=== PATIENT | male | born 1960 | race African-American/Black ===

== ENCOUNTER 2017-08-23 17:28 | Inpatient (IN) | payer SELFPAY ==
[~2017-08-23] VITALS: Ht 175.3 cm; Wt 68.9 kg
[2017-08-23] MEDS ORDERED: NITROGLYCERIN 0.4MG TABLET SL SL ONE (18:15)
[2017-08-23] MEDS ORDERED: MORPHINE SULFATE 4 MG/ML CPJ (NOT FOR IM USE) IV ONE (18:15)
[2017-08-23] MEDS ORDERED: ASPIRIN 325MG EC TABLET PO ONE (18:15)
[2017-08-23 18:33] LABS: BASOPHILS % 1.1 % (0.0-2.0); EOSINOPHILS % 3.3 % (0.0-5.0); HEMATOCRIT. 47.8 % (42.0-52.0); HEMOGLOBIN. 15.8 g/dL (14.0-18.0); LYMPHOCYTES % 32.9 % (20.0-50.0); MEAN CORPUSCULAR HEMOGLOBIN 26.6 pg (28.0-32.0); MEAN CORPUSCULAR VOLUME 80.6 fL (80.0-94.0); MEAN PLATELET VOLUME 8.1 fl (7.4-10.4); MONOCYTES % 11.1 % (2.0-8.0); NEUTROPHILS % 51.6 % (40.0-76.0); PLATELET 273 x1000/uL (130-400); RED BLOOD CELL COUNT 5.93 mill/uL (4.7-6.1); RED CELL DISTRIBUTION WIDTH 13.7 % (11.6-14.6)
[2017-08-23 18:37] LABS: CHLORIDE 101 mEq/L (98-107)
[2017-08-23 18:38] LABS: INR 1.1; PARTIAL THROMBOPLASTIN TIME 28.5 sec (23.4-31.0)
[2017-08-23] MEDS ORDERED: LORAZEPAM 2MG/ML CPJ IV ONE (19:45)
[2017-08-24 10:21] VITALS: BP 142/90
[2017-08-24] MEDS ORDERED: LORAZEPAM 2MG/ML CPJ IV PRN (10:30)
[2017-08-24] MEDS ORDERED: CLONIDINE 0.1MG TABLET PO PRN (10:45)
[2017-08-24] MEDS ORDERED: MAGNESIUM/ALUMINUM HYDROXIDE/SIMETHICONE 30ML UDC PO PRN (10:45)
[2017-08-24] MEDS ORDERED: ACETAMINOPHEN 325MG TABLET PO PRN (10:45)
[2017-08-24] MEDS ORDERED: IPRATROPIUM/ALBUTEROL 0.5-3(2.5)MG/3ML NEB INH PRN (10:45)
[2017-08-24] MEDS ORDERED: ONDANSETRON HCL 4MG/2ML VIAL IV PRN (10:45)
[2017-08-24] MEDS ORDERED: HYDROCODONE/ACETAMINOPHEN 5/325MG TABLET PO PRN (10:45)
[2017-08-24] MEDS: MORPHINE SULFATE 4 MG/ML CPJ (NOT FOR IM USE) IV PRN ×2 (10:52→20:55)
[2017-08-24] MEDS: AMLODIPINE 10MG TABLET PO SCH (12:01)
[2017-08-24] MEDS: ENOXAPARIN 40MG/0.4ML SYR SUBCUT SCH (12:02)
[2017-08-24 12:15] VITALS: BP 142/90
[2017-08-24 14:00] VITALS: BP_SYST 146; BP_SYST 2; BP_DIAS 96
[2017-08-24 16:00] VITALS: BP 149/96
[2017-08-24] MEDS ORDERED: POTASSIUM CHLORIDE 20MEQ TABLET SR PO NR (17:15)
[2017-08-24 17:28] LABS: CREATINE KINASE 81 IU/L (39-308)
[2017-08-24 18:00] VITALS: BP 142/88
[2017-08-24 19:27] LABS: *BARBITURATES SCREEN URINE NEGATIVE (NEGATIVE); *BENZODIAZEPINES SCREEN URINE NEGATIVE (NEGATIVE); *COCAINE SCREEN URINE NEGATIVE (NEGATIVE)
[2017-08-24 19:28] LABS: CANNABINOID URINE SCREEN NEGATIVE (NEGATIVE); METHADONE URINE SCREEN NEGATIVE (NEGATIVE); OPIATES URINE SCREEN PRESUMTIVE POSITIVE (NEGATIVE); PHENCYCLIDINE URINE SCREEN NEGATIVE (NEGATIVE)
[2017-08-24 19:35] LABS: *AMPHETAMINES SCREEN URINE PRESUMTIVE POSITIVE (NEGATIVE)
[2017-08-24 20:00] VITALS: BP 118/83
[2017-08-24 23:50] LABS: CREATINE KINASE 69 IU/L (39-308)
[2017-08-25] VITALS: BP 133/80
[2017-08-25 04:00] VITALS: BP 131/62
[2017-08-25 07:12] LABS: BASOPHILS % 0.7 % (0.0-2.0); EOSINOPHILS % 3.7 % (0.0-5.0); HEMATOCRIT. 46.9 % (42.0-52.0); HEMOGLOBIN. 15.6 g/dL (14.0-18.0); LYMPHOCYTES % 29.5 % (20.0-50.0); MEAN PLATELET VOLUME 8.4 fl (7.4-10.4); MONOCYTES % 9.4 % (2.0-8.0); NEUTROPHILS % 56.7 % (40.0-76.0); PLATELET 230 x1000/uL (130-400); RED BLOOD CELL COUNT 5.79 mill/uL (4.7-6.1); RED CELL DISTRIBUTION WIDTH 13.7 % (11.6-14.6)
[2017-08-25 07:49] LABS: CHLORIDE 105 mEq/L (98-107)
[2017-08-25 08:00] VITALS: BP 128/80
[2017-08-25 08:03] LABS: LDL CHOLESTEROL 88 mg/dL (5-100)
[2017-08-25 08:04] LABS: HDL CHOLESTEROL 45 mg/dL (40-59)
[2017-08-25] MEDS: AMLODIPINE 10MG TABLET PO SCH (08:42)
[2017-08-25] MEDS: ENOXAPARIN 40MG/0.4ML SYR SUBCUT SCH (08:42)
[2017-08-25] MEDS ORDERED: ASPIRIN 81MG EC TABLET PO SCH (09:00)
[2017-08-25 12:00] VITALS: BP 110/78
[2017-08-25 13:28] VITALS: BP 128/80
== END 2017-08-25 14:21 | disposition home or self-care (01) | DRG 203 ==
LOC: EDSEX 17:28 → ER 19:37 → 7WST 22:28 → ENRESERV 08-24 07:59
PROVIDERS: ADMIT Hospitalist; ATTEND Hospitalist
DX: R07.89 Other chest pain (principal); I10 Essential (primary) hypertension; I48.91 Unspecified atrial fibrillation; Z88.5 Allergy status to narcotic agent; Z79.899 Other long term (current) drug therapy
CPT/HCPCS: 36415; 71045; 80053; 80061; 80305; 82550; 83690; 84484; 85025; 85610; 85730; 93005; 93970; 96374; 96375; 99285; J1650; J2060; J2270

== ENCOUNTER 2017-08-27 15:52 | Emergency (ER) | payer SELFPAY ==
[~2017-08-27] VITALS: Ht 180.3 cm; Wt 80.0 kg
[2017-08-27] MEDS ORDERED: NITROGLYCERIN 0.4MG TABLET SL SL PRN (16:45)
[2017-08-27] MEDS ORDERED: ASPIRIN 81MG TABLET PO ONE (16:45)
[2017-08-27 17:41] LABS: BASOPHILS % 0.7 % (0.0-2.0); EOSINOPHILS % 0.5 % (0.0-5.0); HEMATOCRIT. 47.2 % (42.0-52.0); HEMOGLOBIN. 15.8 g/dL (14.0-18.0); LYMPHOCYTES % 24.8 % (20.0-50.0); MEAN CORPUSCULAR HEMOGLOBIN 26.6 pg (28.0-32.0); MEAN CORPUSCULAR VOLUME 79.4 fL (80.0-94.0); MONOCYTES % 12.6 % (2.0-8.0); NEUTROPHILS % 61.4 % (40.0-76.0); PLATELET 267 x1000/uL (130-400); RED BLOOD CELL COUNT 5.94 mill/uL (4.7-6.1); RED CELL DISTRIBUTION WIDTH 13.9 % (11.6-14.6)
[2017-08-27 17:42] LABS: CHLORIDE 97 mEq/L (98-107)
[2017-08-27 17:43] LABS: INR 1.1; PROTHROMBIN TIME 11.4 sec (9.4-11.6)
[2017-08-27] MEDS ORDERED: ACETAMINOPHEN WITH CODEINE 300/30MG TABLET PO ONE (18:45)
[2017-08-27 22:26] VITALS: BP 126/87
== END 2017-08-27 22:28 | disposition home or self-care (01) ==
LOC: ER 15:52 → CANBEDREQ 23:05
DX: R07.89 Other chest pain (principal)
CPT/HCPCS: 36415; 71045; 80053; 83880; 84484; 85025; 85610; 93005; 99285

== ENCOUNTER 2018-07-19 20:05 | Emergency (ER) | payer MEDICAID ==
[~2018-07-19] VITALS: Ht 175.3 cm; Wt 73.0 kg
[2018-07-19] MEDS ORDERED: ENOXAPARIN 80MG/0.8ML SYR SUBCUT ONE (20:30)
[2018-07-19] MEDS ORDERED: ASPIRIN 81MG TABLET PO ONE (20:30)
[2018-07-19] MEDS: NITROGLYCERIN 0.4MG TABLET SL SL PRN ×2 (20:51→21:04)
[2018-07-19 21:11] LABS: BASOPHILS % 2.1 % (0.0-2.0); EOSINOPHILS % 1.6 % (0.0-5.0); HEMATOCRIT. 42.4 % (42.0-52.0); HEMOGLOBIN. 14.3 g/dL (14.0-18.0); LYMPHOCYTES % 39.1 % (20.0-50.0); MEAN CORPUSCULAR HEMOGLOBIN 26.7 pg (28.0-32.0); MEAN CORPUSCULAR VOLUME 79.1 fL (80.0-94.0); MEAN PLATELET VOLUME 8.4 fl (7.4-10.4); MONOCYTES % 10.9 % (2.0-8.0); NEUTROPHILS % 46.3 % (40.0-76.0); PLATELET 199 x1000/uL (130-400); RED BLOOD CELL COUNT 5.36 mill/uL (4.7-6.1); RED CELL DISTRIBUTION WIDTH 14.8 % (11.6-14.6)
[2018-07-19 21:13] LABS: CHLORIDE 109 mEq/L (98-107)
[2018-07-19 23:02] LABS: *AMPHETAMINES SCREEN URINE NEGATIVE (NEGATIVE); *BARBITURATES SCREEN URINE NEGATIVE (NEGATIVE); *BENZODIAZEPINES SCREEN URINE NEGATIVE (NEGATIVE)
[2018-07-19 23:03] LABS: *COCAINE SCREEN URINE NEGATIVE (NEGATIVE); CANNABINOID URINE SCREEN NEGATIVE (NEGATIVE); METHADONE URINE SCREEN NEGATIVE (NEGATIVE); OPIATES URINE SCREEN NEGATIVE (NEGATIVE); PHENCYCLIDINE URINE SCREEN NEGATIVE (NEGATIVE)
[2018-07-20] MEDS ORDERED: ONDANSETRON 4MG ODT PO ONE (00:45)
[2018-07-20 03:42] VITALS: BP 130/84
== END 2018-07-20 03:41 | disposition short-term general hospital (02) ==
LOC: ER 21:07 → EDBEDREQ 22:48 → EDBEDREQTM 22:48 → EDBEDREQ 23:14 → ENRESERV 07-20 01:56 → CANRESERV 07-20 01:56 → CANBEDREQ 07-20 02:17 → ER 07-20 03:41
DX: R07.89 Other chest pain (principal); I20.0 Unstable angina; I48.91 Unspecified atrial fibrillation; I10 Essential (primary) hypertension; Z88.6 Allergy status to analgesic agent; Z98.890 Other specified postprocedural states
CPT/HCPCS: 36415; 71045; 80053; 80305; 83880; 84484; 85025; 93005; 96372; 99285; J1650; Q0162